=== PATIENT | female | born 1950 | race Caucasian/White ===

== ENCOUNTER → 2016-12-25 | Day surgery (SDC) | payer MEDICARE, OTHER ==
[~2016-12-25] VITALS: Ht 170.2 cm; Wt 105.9 kg
[2016-12-25 09:39] LABS: HCT 40.5 % (37.0-47.0); HGB 13.5 g/dl (12.5-16.0); MCH 27.6 pg (25.0-31.0); MCHC 33.3 g/dL (32.0-36.0); MCV 82.8 fL (78.0-100.0); MPV 9.3 fL (6.0-9.5); RBC 4.89 M/uL (4.20-5.40); RDW 14.1 % (11.5-14.0); WBC 6.8 K/uL (4.0-10.5)
[2016-12-25 09:52] LABS: ALBUMIN 4.1 g/dL (3.4-4.8); BILIRUBIN - TOTAL 0.4 mg/dL (0.1-1.0); CREATININE 0.9 mg/dL (0.5-1.0); GLOBULIN (CALCULATION) 2.8 g/dL (2.2-4.2); TOTAL PROTEIN 6.9 g/dL (6.4-8.3)
== END | disposition home or self-care (01) ==
LOC: FAS 12-20 11:00
PROVIDERS: Surgery
DX: L72.0 Epidermal cyst (principal); K21.9 Gastro-esophageal reflux disease without esophagitis; E03.9 Hypothyroidism, unspecified; M19.90 Unspecified osteoarthritis, unspecified site; G47.30 Sleep apnea, unspecified; Z90.49 Acquired absence of other specified parts of digestive tract; Z98.890 Other specified postprocedural states; Z99.81 Dependence on supplemental oxygen; Z87.891 Personal history of nicotine dependence; Z88.8 Allergy status to other drugs, medicaments and biological substances; Z90.710 Acquired absence of both cervix and uterus
CPT/HCPCS: 36415; 80053; 88304; J1100; J2405; J2704; J3010